=== PATIENT | male | born 1990 ===

== ENCOUNTER 2017-03-08 08:43 | Emergency (ER) | payer SELFPAY ==
[2017-03-08 08:45] VITALS: BMI 24.2
[2017-03-08 08:47] VITALS: BP 145/75; PULSE 61; RESP 19; TEMP 98; O2SAT 100
--- NOTE | 2017-03-08 09:14 | ED PDOC ---
Upper Extremity Pain/Injury Time Seen by Provider: 03/08/17 09:03 Chief Complaint (Nursing): Upper Extremity Problem/Injury Chief Complaint (Provider): Upper Extremity Problem/Injury History Per: Patient History/Exam Limitations: no limitations Onset/Duration Of Symptoms: Days Current Symptoms Are (Timing): Still Present Quality: "Pain" Severity: Mild Additional Complaint(s): Patient is a 26 year old male who presents to ED for right shoulder pain for 2 weeks. Patient states pain began after he fell, notes pain with lifting the arm but denies numbness or weakness. Patient also reports injuring his penis 1 month ago. States that during intercourse he sustained a slight tear in his foreskin and has been unable to retract the foreskin since. Denies any past medical history, no penile drainage or rash. Past Medical History Reviewed: Historical Data, Nursing Documentation, Vital Signs Vital Signs: Last Vital Signs Temp 98 F 03/08/17 08:45 Pulse 61 03/08/17 08:45 Resp 19 03/08/17 08:45 BP 145/75 03/08/17 08:45 Pulse Ox 100 03/08/17 08:45 - Medical History PMH: Asthma - Surgical History Surgical History: Appendectomy, Tonsillectomy - Family History Family History: States: Unknown Family Hx - Immunization History Hx Tetanus Toxoid Vaccination: No Hx Influenza Vaccination: No - Home Medications Home Medications: Ambulatory Orders Medication Instructions Recorded Naproxen [Naprosyn] 500 mg PO Q12H #20 tab 03/08/17 - Allergies Allergies/Adverse Reactions: Allergies Allergy/AdvReac Type Severity Reaction Status Date / Time shellfish derived Allergy ANAPHYLAXIS Verified 05/30/16 13:52 Review of Systems ROS Statement: Except As Marked, All Systems Reviewed And Found Negative Constitutional: Negative for: Fever, Chills Cardiovascular: Negative for: Palpitations Respiratory: Negative for: Shortness of Breath Gastrointestinal: Negative for: Abdominal Pain Genitourinary Male: Positive for: Penile Pain. Negative for: Dysuria, Penile Discharge Musculoskeletal: Positive for: Shoulder Pain. Negative for: Neck Pain, Arm Pain Neurological: Negative for: Weakness, Numbness Physical Exam - Reviewed Nursing Documentation Reviewed: Yes Vital Signs Reviewed: Yes - Physical Exam Appears: Positive for: Non-toxic, No Acute Distress Skin: Positive for: Normal Color, Warm Eye Exam: Positive for: Normal appearance Neck: Positive for: Normal, Painless ROM Male Genital Exam: Positive for: other (Uncircumcized, unable to retract foreskin (-) erythema (-) discharge (-) lesions ) Back: Positive for: Normal Inspection Extremity: Positive for: Other (Right shoulder: (+) ROM above horzontal limited secondary to pain ). Negative for: Tenderness, Deformity, Swelling Neurologic/Psych: Positive for: Alert, Oriented - ECG O2 Sat by Pulse Oximetry: 100 (RA) Pulse Ox Interpretation: Normal Medical Decision Making Medical Decision Making: Time: 904 Initial impression: Shoulder injury r/o dislocation and fracture . Penile injury Initial plan: -- Shoulder Xray Scribe Attestation: Documented by Kylah Rios acting as a scribe for Angus Phipps MD MD Scribe Attestation: All medical record entries made by the Scribe were at my direction and personally dictated by me. I have reviewed the chart and agree that the record accurately reflects my personal performance of the history, physical exam, medical decision making, and the department course for this patient. I have also personally directed, reviewed, and agree with the discharge instructions and disposition. Disposition - Clinical Impression Clinical Impression: Shoulder sprain - Patient ED Disposition Is Patient to be Admitted: No Counseled Patient/Family Regarding: Studies Performed, Diagnosis, Need For Followup, Rx Given - Disposition Referrals: Edin Seymour MD [Staff Provider] - Disposition: Routine/Home Disposition Time: 09:45 Condition: FAIR Prescriptions: Naproxen [Naprosyn] 500 mg PO Q12H #20 tab Instructions: Shoulder Sprain (ED), Phimosis (ED)
--- NOTE | 2017-03-08 11:45 | RAD ---
PROCEDURE: Radiographs of the Right Shoulder HISTORY: Trauma COMPARISON: No prior. FINDINGS: BONES: Bone alignment and mineralization are normal. There is no acute fracture or bone destruction. JOINTS: Normal. Glenohumeral and acromioclavicular joints preserved. No osteoarthritis. SOFT TISSUES: Normal. OTHER FINDINGS: None. IMPRESSION: No acute fracture or dislocation.
== END 2017-03-08 10:04 | disposition home or self-care (01) ==
LOC: H.ER 08:43
DX: S43.401A Unspecified sprain of right shoulder joint, initial encounter (principal); W19.XXXA Unspecified fall, initial encounter

== ENCOUNTER 2017-03-12 14:18 | Emergency (ER) | payer SELFPAY ==
[2017-03-12 14:19] VITALS: BMI 24.2
[2017-03-12 14:37] VITALS: BP 130/84; PULSE 50; RESP 16; TEMP 98.2; O2SAT 99
--- NOTE | 2017-03-12 14:50 | ED PDOC ---
HPI: General Adult Time Seen by Provider: 03/12/17 14:45 Chief Complaint (Nursing): Medical Clearance Chief Complaint (Provider): Medical Clearance History Per: Patient History/Exam Limitations: no limitations Onset/Duration Of Symptoms: Days Current Symptoms Are (Timing): Better Severity: None Additional Complaint(s): Patient is a 26 year old male who presents to ED for clearance to return to work. Patient states that he injured his right shoulder 3 weeks ago, evaluated last week in ED and started on medication. Notes that he has been pain free for 3 days but his job will not allow him to return without note. Past Medical History Reviewed: Historical Data, Nursing Documentation, Vital Signs Vital Signs: Last Vital Signs Temp 98.2 F 03/12/17 14:35 Pulse 50 L 03/12/17 14:35 Resp 16 03/12/17 14:35 BP 130/84 03/12/17 14:35 Pulse Ox 99 03/12/17 14:51 - Medical History PMH: Asthma - Surgical History Surgical History: Appendectomy, Tonsillectomy - Family History Family History: States: Unknown Family Hx - Living Arrangements Living Arrangements: With Family - Immunization History Hx Tetanus Toxoid Vaccination: No Hx Influenza Vaccination: No - Home Medications Home Medications: Ambulatory Orders Medication Instructions Recorded Naproxen [Naprosyn] 500 mg PO Q12H #20 tab 03/08/17 - Allergies Allergies/Adverse Reactions: Allergies Allergy/AdvReac Type Severity Reaction Status Date / Time shellfish derived Allergy ANAPHYLAXIS Verified 03/12/17 14:35 Review of Systems Constitutional: Negative for: Weakness Musculoskeletal: Negative for: Neck Pain, Shoulder Pain, Arm Pain, Back Pain Skin: Negative for: Bruising Neurological: Negative for: Weakness, Numbness Physical Exam - Reviewed Nursing Documentation Reviewed: Yes Vital Signs Reviewed: Yes - Physical Exam Appears: Positive for: Non-toxic, No Acute Distress Skin: Positive for: Normal Color, Warm Eye Exam: Positive for: Normal appearance Neck: Positive for: Normal, Painless ROM Extremity: Positive for: Normal ROM, Other (Right shoulder: Normal ROM, no tenderness or sign of injury) Neurologic/Psych: Positive for: Alert, Oriented - ECG O2 Sat by Pulse Oximetry: 99 (RA) Pulse Ox Interpretation: Normal Medical Decision Making Medical Decision Making: Time: 1445 Initial Impression: Medical clearance Initial Plan: Discussed with patient that I will clear him to return to work today but to refrain from heavy lifting. If pain should return he must follow up with orthopedics. Scribe Attestation: Documented by Kylah Rios, acting as a scribe for Yuri Sweeney PA-C. Provider Scribe Attestation: All medical record entries made by the Scribe were at my direction and personally dictated by me. I have reviewed the chart and agree that the record accurately reflects my personal performance of the history, physical exam, medical decision making, and the department course for this patient. I have also personally directed, reviewed, and agree with the discharge instructions and disposition. Disposition - Clinical Impression Clinical Impression: Shoulder sprain - Patient ED Disposition Is Patient to be Admitted: No - Disposition Referrals: [facility] [Outside] Disposition: Routine/Home Disposition Time: 15:23 Condition: FAIR Instructions: Shoulder Sprain (ED) Forms: [facility] ED School/Work Excuse
== END 2017-03-12 15:25 | disposition home or self-care (01) ==
LOC: H.ER 14:18
DX: Z00.00 Encounter for general adult medical examination without abnormal findings (principal)